=== PATIENT | male | born 1980 | race Two or more races ===

== ENCOUNTER 2017-03-31 20:22 | Inpatient (IN) | payer OTHER ==
[2017-03-31 20:31] VITALS: BMI 28.3
[2017-03-31] MEDS ORDERED: ONDANSETRON 4 MG/2 ML VIAL IVPB ONE (21:20)
[2017-03-31] MEDS ORDERED: SODIUM CHLORIDE 1,000 ML IV STA (21:20)
[2017-03-31] MEDS ORDERED: PANTOPRAZOLE SODIUM 40 MG in SODIUM CHLORIDE 100 ML IVPB ONE (21:20)
[2017-03-31] MEDS ORDERED: PANTOPRAZOLE SODIUM 100 ML IVPB ONE (21:37)
[2017-03-31] MEDS ORDERED: ONDANSETRON 4 MG/2 ML VIAL ONE (21:37)
[2017-03-31 22:08] LABS: URINE APPEARANCE CLEAR; URINE BILIRUBIN NEGATIVE (NEGATIVE); URINE BLOOD NEGATIVE (NEGATIVE); URINE COLOR LTYELLOW; URINE GLUCOSE (UA) NEGATIVE (NEGATIVE); URINE KETONE TRACE (NEGATIVE); URINE LEUK ESTERASE NEGATIVE (NEGATIVE); URINE NITRITE NEGATIVE (NEGATIVE); URINE PROTEIN NEGATIVE (NEGATIVE); URINE UROBILINOGEN NEGATIVE E.U./dl (0.2-1.0)
[2017-03-31 22:19] LABS: URINE MARIJUANA THC NEGATIVE ng/ml (CUTOFF=50)
[2017-03-31 22:54] LABS: AMYLASE 64 U/L (25-115); ANION GAP 9 (8-16); CALCIUM 9.2 mg/dL (8.5-10.1); CO2 30 mmol/L (21-32); COCKROFT - GAULT 107.09; CREATININE 0.9 mg/dL (0.7-1.3); GLUCOSE,RANDOM 92 mg/dL (74-106); SGOT/AST 30 U/L (15-37); SGPT/ALT 54 U/L (12-78); TOT PROT 7.3 g/dl (6.4-8.2)
[2017-03-31 22:55] LABS: ALK PHOS 105 U/L (45-117)
--- NOTE | 2017-04-01 00:53 | PDOC ---
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 Presents to ED c/o abd pain w / n/v starting 2am yesterday. Patient states having similar episode 3 months ago. He states he was using a medication for gastritis but does not remember the name. He also verbalized the use of TUMs for symptoms management. Patient denies any other complaints at this time. PCP- Mile Craft MD. Timing/Duration: reports: constant Quality: reports: moderate Abdominal Pain Onset Location: reports: generalized abdomen Pain Radiation: reports: no radiation Activities at Onset: reports: none Treatment Prior to Arrive: improves with: antacids. worse with: analgesics, cold pack, heat, laxative, enema, other Aggravating Factors: worse with: None, Defecation, Eating, Emotional upset, Exertion, [place], Movement, Voiding, Change in position Alleviating Factors: worse with: None, Belching, Shallow Breathing, Defecation, Eating, Holding Breath, Passing Gas, Change in Position, Rest, Voiding, Vomiting Past History - Travel Traveled outside of the country in the last 30 days: No Close contact w/someone who was outside of country & ill: No - Past Medical History Allergies/Adverse Reactions: Allergies Allergy/AdvReac Type Severity Reaction Status Date / Time pollen extracts Allergy Verified 03/31/17 21:10 Home Medications: Ambulatory Orders NK [No Known Home Medication] 03/31/17 HTN: Yes Hypercholesterolemia: Yes - Immunization History Immunization Up to Date: Yes - Psycho/Social/Smoking Cessation Hx Anxiety: No Suicidal Ideation: No Smoking History: Never smoked Have you smoked in the past 12 months: No Information on smoking cessation initiated: No Hx Alcohol Use: No Drug/Substance Use Hx: No Substance Use Type: Alcohol Abd/GI Specific PMHX - Complaint Specific PMHX Colitis: No Diverticulitis: No Gall Bladder Disease: No GERD: No Hepatitis: No Irritable Bowel Synd (IBS): No Pancreatitis: No GI Ulcer Disease: No Review of Systems - Review of Systems Able to Perform ROS?: Yes Is the patient limited Telugu proficient: No Constitutional: No: Chills, Fever HEENTM: No: Nose Congestion, Throat Pain, Throat Swelling, Mouth Pain, Difficulty Swallowing, Mouth Swelling Respiratory: No: Cough, Shortness of Breath, Stridor, Wheezing Cardiac (ROS): No: Chest Pain, Edema, Lightheadedness, Palpitations, Syncope, Chest Tightness ABD/GI: Yes: Nausea, Vomiting, Other (Generalized abd pain). No: Poor Appetite , Poor Fluid Intake, Rectal Bleeding Musculoskeletal: No: Back Pain Integumentary: No: Bruising, Dryness, Erythema, Rash, Sweating Neurological: No: Headache, Numbness, Seizure, Tingling, Tremors, Ataxia, Dizziness All Other Systems: Reviewed and Negative *Physical Exam - Vital Signs Last Vital Signs Temp Pulse Resp BP Pulse Ox 99.7 F H 79 18 117/69 98 03/31/17 20:28 03/31/17 20:28 03/31/17 20:28 03/31/17 20:28 03/31/17 21:00 - Physical Exam General Appearance: Yes: Nourished, Appropriately Dressed, Mild Distress. No: Apparent Distress, Moderate Distress, Severe Distress Neck: positive: Trachea midline, Supple. negative: Stridor, Lymphadenopathy (R) , Lymphadenopathy (L) Respiratory/Chest: positive: Lungs Clear, Normal Breath Sounds. negative: Respiratory Distress, Accessory Muscle Use, Labored Respiration, Rapid RR, Decreased Breath Sounds, Crackles, Rales, Stridor, Wheezing Cardiovascular: positive: Regular Rhythm, Regular Rate Gastrointestinal/Abdominal: positive: Soft, Decreased BS, Tenderness ( Generalized abd pain-mild tenderness to epigastric region on deep palpation.) Lymphatic: negative: Adenopathy Musculoskeletal: positive: Normal Inspection. negative: CVA Tenderness Extremity: positive: Normal Capillary Refill, Normal Inspection, Normal Range of Motion. 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 NML intact, Fully Oriented, Alert, Normal Mood/ Affect, Normal Response, Motor Strength /5 ED Treatment Course - LABORATORY CBC & Chemistry Diagram: 04/01/17 02:48 03/31/17 22:00 - ADDITIONAL ORDERS Additional order review: Laboratory Results 03/31/17 03/31/17 03/31/17 22:00 22:00 22:00 Sodium 139 Potassium 3.7 Chloride 100 Carbon Dioxide 30 Anion Gap 9 BUN 14 Creatinine 0.9 Creat Clearance w eGFR > 60 Random Glucose 92 Calcium 9.2 Total Bilirubin 1.0 AST 30 ALT 54 Alkaline Phosphatase 105 Total Protein 7.3 Albumin 4.0 Total Amylase 64 Lipase 104 Urine Color Ltyellow Urine Appearance Clear Urine pH 7.0 Ur Specific [place] 1.019 Urine Protein Negative Urine Glucose (UA) Negative Urine Ketones Trace H Urine Blood Negative Urine Nitrite Negative Urine Bilirubin Negative Urine Urobilinogen Negative Ur Leukocyte Esterase Negative Opiates Screen Negative Methadone Screen Negative Barbiturate Screen Negative Phencyclidine Screen Negative Ur Amphetamines Screen Negative MDMA (Ecstasy) Screen Negative Benzodiazepines Screen Negative Cocaine Screen Negative U Marijuana (THC) Screen Negative - Medications Given in the ED: ED Medications Discontinued Medications Generic Name Dose Route Start Last Admin Trade Name Freq PRN Reason Stop Dose Admin Pantoprazole Sodium 40 mg/ 100 mls @ 200 mls/hr 03/31/17 21:20 03/31/17 21:50 Sodium Chloride IVPB 03/31/17 21:49 200 mls/hr ONCE ONE Administration Sodium Chloride 1,000 mls @ 1,000 mls/hr 03/31/17 21:20 03/31/17 22:01 Normal Saline - IV 03/31/17 22:19 1,000 mls/hr ASDIR STA Administration Ondansetron HCl 4 mg 03/31/17 21:20 03/31/17 21:50 Zofran Injection IVPB 03/31/17 21:21 4 mg ONCE ONE Administration - Consult/PCP Time Called: 06:00 Case discussed with personal care physician: Roscoe Cazares Medical Decision Making - Medical Decision Making 04/01/17 06:[address] CAZARES REGARDING ACUTE APPENDICITIS. INSTRUCTIONS TO START ZOSYN AND KEEP PATIENT NPO DISCUSSED. HOSPITALIST TO ADMIT PATIENT. *DC/Admit/Observation/Transfer Diagnosis at time of Disposition: Acute appendicitis Qualifiers: Acute appendicitis type: unspecified acute appendicitis type Qualified Code(s) : K35.80 - Unspecified acute appendicitis - Discharge Dispostion Condition at time of disposition: Fair Admit: Yes
[2017-04-01 03:19] LABS: BASOPHIL 0.5 % (0-2.0); EOSINOPHIL 0.8 % (0-4.5); MCH 28.6 pg (25.7-33.7); MCHC 33.9 g/dl (32.0-35.9); MEAN CELL VOLUME 84.4 fl (80-96); NEUTROPHILS 74.7 % (42.8-82.8); PLATELET COUNT 197 K/MM3 (134-434); RDW 13.4 % (11.9-15.9); WHITE BLOOD COUNT 15.9 K/mm3 (4.0-10.0)
[2017-04-01] MEDS ORDERED: ERTAPENEM SODIUM 1 GM/50 ML PRE-DOCKED IVPB ONE (05:54)
[2017-04-01] MEDS ORDERED: ONDANSETRON 4 MG/2 ML VIAL IVPB ONE (05:55)
[2017-04-01] MEDS ORDERED: morphine CARPU-JECT 4 MG/1 ML DISP.SYRIN IVPUSH ONE (05:55)
[2017-04-01] MEDS ORDERED: PIPERACILLIN/TAZOB 3.375 GM/50 ML PRE-DOCKED IV ONE (06:00)
[2017-04-01] MEDS ORDERED: ERTAPENEM SODIUM 1 GM VIAL ONE (06:02)
[2017-04-01] MEDS ORDERED: morphine CARPU-JECT 4 MG/1 ML DISP.SYRIN ONE (06:02)
[2017-04-01] MEDS ORDERED: ONDANSETRON 4 MG/2 ML VIAL ONE (06:03)
[2017-04-01] MEDS ORDERED: morphine CARPU-JECT 2 MG/1 ML DISP.SYRIN IVPUSH PRN (06:48)
[2017-04-01] MEDS ORDERED: PIPERACILLIN/TAZOB 3.375 GM 50 ML IVPB ONE (06:49)
[2017-04-01] MEDS ORDERED: ONDANSETRON 4 MG/2 ML VIAL IVPB PRN (06:54)
[2017-04-01] MEDS ORDERED: LACTATED RINGERS SOLUTION 1,000 ML IV SCH (07:00)
[2017-04-01 07:41] LABS: INR 1.19 (0.82-1.09); PROTHROMBIN TIME (PATIENT) 13.1 SEC (9.98-11.88)
--- NOTE | 2017-04-01 08:34 | HP ---
Addendum entered and electronically signed by Paula Garcia RES 04/01/17 16 :26: surgery today; perforated appendix; will start IV Levaquin and flagyl Original Note: CHIEF COMPLAINT: abdominal pain, N/V PCP:Dr. Tim HISTORY OF PRESENT ILLNESS: 36 year old male with past medical history of ETOH use (quit drinking 6months ago), present to the emergency room with diffuse abdominal pain, nausea and vomiting since yesterday. Symptoms were accompanied with fever. Denies chest pain, sob, changes in bowel or bladder. Emergency course notable for elevated white count, CT abdominal CT evident for acute appendicitis. Recent Travel: no PAST MEDICAL HISTORY: none PAST SURGICAL HISTORY: none Social History: Smoking:no Alcohol:quit six months ago; used to drink beer on weekends Drugs:no Family History: Allergies pollen extracts Allergy (Verified 03/31/17 21:10) HOME MEDICATIONS: Home Medications Medication Instructions Recorded NK [No Known Home Medication] 03/31/17 REVIEW OF SYSTEMS CONSTITUTIONAL: Positive: fever Absent: chills, diaphoresis, generalized weakness, malaise, loss of appetite, weight change HEENT: Absent: rhinorrhea, nasal congestion, throat pain, throat swelling, difficulty swallowing, mouth swelling, ear pain, eye pain, visual changes CARDIOVASCULAR: Absent: chest pain, syncope, palpitations, irregular heart rate, lightheadedness , peripheral edema RESPIRATORY: Absent: cough, shortness of breath, dyspnea with exertion, orthopnea, wheezing, stridor, hemoptysis GASTROINTESTINAL: Postive: abdominal pain, nausea, vomiting Absent: abdominal distension,diarrhea, constipation, melena, hematochezia GENITOURINARY: Absent: dysuria, frequency, urgency, hesitancy, hematuria, flank pain, genital pain MUSCULOSKELETAL: Absent: myalgia, arthralgia, joint swelling, back pain, neck pain SKIN: Absent: rash, itching, pallor HEMATOLOGIC/IMMUNOLOGIC: Absent: easy bleeding, easy bruising, lymphadenopathy, frequent infections ENDOCRINE: Absent: unexplained weight gain, unexplained weight loss, heat intolerance, cold intolerance NEUROLOGIC: Absent: headache, focal weakness or paresthesias, dizziness, unsteady gait, seizure, mental status changes, bladder or bowel incontinence PSYCHIATRIC: Absent: anxiety, depression, suicidal or homicidal ideation, hallucinations. PHYSICAL EXAMINATION Vital Signs - 24 hr 04/01/17 04/01/17 04/01/17 06:21 07:52 08:09 Temperature 97.9 F 97.6 F 97.6 F Pulse Rate 47 L 47 L Pulse Rate [ 64 Left] Respiratory 17 18 18 Rate Blood Pressure 112/59 112/59 Blood Pressure 109/63 [Left Arm] O2 Sat by Pulse 96 98 Oximetry (%) GENERAL: Awake, alert, and fully oriented, in no acute distress. HEAD: Normal with no signs of trauma. EYES: Pupils equal, round and reactive to light, extraocular movements intact, sclera anicteric, conjunctiva clear. No lid lag. EARS, NOSE, THROAT: Ears normal, nares patent, oropharynx clear without exudates. Moist mucous membranes. NECK: Normal range of motion, supple without lymphadenopathy, JVD, or masses. LUNGS: Breath sounds equal, clear to auscultation bilaterally. No wheezes, and no crackles. No accessory muscle use. HEART: Regular rate and rhythm, normal S1 and S2 without murmur, rub or gallop. ABDOMEN: Soft, very tender, not distended, normoactive bowel sounds, no guarding , + rebound, no masses. No hepatomegaly or splenomegaly. MUSCULOSKELETAL: Normal range of motion at all joints. No bony deformities or tenderness. No CVA tenderness. UPPER EXTREMITIES: 2+ pulses, warm, well-perfused. No cyanosis. No clubbing. No peripheral edema. LOWER EXTREMITIES: 2+ pulses, warm, well-perfused. No calf tenderness. No peripheral edema. NEUROLOGICAL: Cranial nerves II-XII intact. Normal speech. Normal gait. PSYCHIATRIC: Cooperative. Good eye contact. Appropriate mood and affect. SKIN: Warm, dry, normal turgor, no rashes or lesions noted, normal capillary refill. Laboratory Results - last 24 hr 04/01/17 04/01/17 04/01/17 06:20 07:18 07:18 INR 1.19 H Blood Type O POSITIVE Cancelled Antibody Screen Negative Cancelled Spec Expiration Date Cancelled 04/01/17 07:43 INR Blood Type O POSITIVE Antibody Screen Spec Expiration Date ASSESSMENT/PLAN: 36 year old male with present with abdominal pain, n,v, fever; acute appendicitis on CT abdomen. #Acute appendicitis: -NPO for aurgery -pain control morphine -IVF -1x unasyn in ER -Surgery consulted Dr. Arad taking for surgery today FEN: Fluids: lactated ringer Electrolytes: wnl Diet: npo Disposition; pending surgery Visit type - Emergency Visit Emergency Visit: Yes ED Registration Date: 04/01/17 Care time: The patient presented to the Emergency Department on the above date and was hospitalized for further evaluation of their emergent condition. - New Patient This patient is new to me today: Yes Date on this admission: 04/01/17 - Critical Care Critical Care patient: No
--- NOTE | 2017-04-01 11:40 | MSN ---
Admitting History and Physical - Admission Chief Complaint: Abdominal pain History of Present Illness: MEDICAL STUDENT NOTE The patient is a 36 year old male with no significant past medical history who presented to the ED with a complaint of abdominal pain of one day duration. The patient stated that the pain began at approximately 1am this morning (5/3) along with fever, nausea and 3 episodes of vomiting (non-bloody). The pain was described as a pressure that started in the mid-epigastric region and radiated to the left side. It was rated 9/10. The pain was exacerbated with movement and nothing made the pain better. The patient stated that he had a similar episode of abdominal pain 3 months ago which resolved without medication or intervention. The patient was diagnosed with acute appendicitis in the ED. Today the patient has diffuse abdominal pain described as a pressure-like sensation and rated 8-9/10. He experiences occasional nausea and feels "hot and sweaty". He denies headaches, dizziness, diarrhea, constipation, shortness of breath, and chest pain. Tobacco: None Alcohol: Quit 6 months ago, stated he used to drink beer on the weekends Illicit drugs: none Caffeine: 1 cup of coffee/day Occupation: [employer] Social: Lives at home with , daughter, and son Medical Hx: None Home medications: None PSHx: None Allergies: None FHx: Mother had appendix removed History Source: Patient Limitations to Obtaining History: No Limitations - Smoking History Smoking history: Never smoked Have you smoked in the past 12 months: No - Alcohol/Substance Use Hx Alcohol Use: Yes Home Medications - Allergies Allergies/Adverse Reactions: Allergies Allergy/AdvReac Type Severity Reaction Status Date / Time pollen extracts Allergy Verified 03/31/17 21:10 - Home Medications Home Medications: Ambulatory Orders NK [No Known Home Medication] 03/31/17 Review of Systems - Review of Systems Constitutional: reports: Diaphoresis Eyes: denies: Recent Change in Vision HENT: denies: Difficult Swallowing, Throat Pain Cardiovascular: denies: Chest Pain, Edema, Palpitations, Shortness of Breath Respiratory: denies: Cough, Hemoptysis, Orthopnea, SOB, SOB on Exertion, Wheezing Gastrointestinal: reports: Abdominal Pain. denies: Constipation, Diarrhea Genitourinary: reports: Flank Pain (Left, radiates from abdomen) Musculoskeletal: reports: No Symptoms Integumentary: reports: No Symptoms Neurological: reports: No Symptoms Endocrine: reports: No Symptoms Hematology/Lymphatic: reports: No Symptoms Psychiatric: reports: No Symptoms Physical Examination Vital Signs: Vital Signs Temperature 97.6 F 04/01/17 08:09 Pulse Rate 47 L 04/01/17 08:09 Respiratory Rate 18 04/01/17 08:09 Blood Pressure 112/59 04/01/17 08:09 O2 Sat by Pulse Oximetry (%) 98 04/01/17 08:09 Constitutional: Yes: Well Nourished, Diaphoresis, Mild Distress Eyes: Yes: WNL, Conjunctiva Clear HENT: Yes: WNL, Atraumatic, Normocephalic Neck: Yes: WNL, Supple, Trachea Midline Cardiovascular: Yes: WNL, Regular Rate and Rhythm, S1, S2. No: Pulse Irregular , Murmur, Rub, S3, S4 Respiratory: Yes: WNL, Regular, CTA Bilaterally. No: Cough, Orthopnea, Rales, Rhonchi, SOB, SOB on Exertion, Stridor, Wheezes Gastrointestinal: Yes: Hyperactive Bowel Sounds, Tenderness (Diffuse, to light palpation). No: Tenderness, Rebound Extremities: Yes: WNL Edema: No (None B/L UE and LE) Peripheral Pulses WNL: Yes Peripheral Pulses: Left Radial: 2+, Right Radial: 2+, Left Doralis Pedis: 2+, Right Dorsalis Pedis: 2+ Integumentary: Yes: WNL Neurological: Yes: WNL, Alert, Oriented Psychiatric: Yes: WNL, Alert, Oriented Assessment/Plan MEDICAL STUDENT NOTE #Acute appendicitis - Dr. Cazares is following patient, anticipate appendectomy - NPO status - morphine 1mg IVP q4hr PRN for pain - zofran 4mg IVPB q4hr PRN - Lactate ringers solution 1000 mls @ 100/hr. #DVT prophylaxis - SCDs #Fluids - Lactate ringers 1000mls @ 100/hr #Electrolytes - None #Nutrition - NPO status until after surgery Disposition: Awaiting patient to have surgery, possibly can discharge to home today
--- NOTE | 2017-04-01 13:11 | EKG ---
Test Reason : Blood Pressure : / mmHG Vent. Rate : 058 BPM Atrial Rate : 058 BPM P-R Int : 160 ms QRS Dur : 096 ms QT Int : 436 ms P-R-T Axes : 041 057 029 degrees QTc Int : 428 ms SINUS BRADYCARDIA OTHERWISE NORMAL ECG NO PREVIOUS ECGS AVAILABLE Confirmed by ROLANDA TORRES, KENNA ([id number]) on 04/01/2017 1:10:48 PM Referred By: Confirmed By:KENNA ORANTES MD
[2017-04-01] MEDS ORDERED: MIDAZOLAM HCL 2 MG/2 ML SINGLE DOSE VIAL ONE (14:14)
[2017-04-01] MEDS ORDERED: ROCURONIUM BROMIDE 50 MG/5 ML VIAL ONE (14:14)
[2017-04-01] MEDS ORDERED: PROPOFOL 20 ML ONE (14:15)
--- NOTE | 2017-04-01 14:17 | CONSULT ---
Consult Consult Specialty:: Surgery Reason for Consultation:: Abdominal pain - History of Present Illness Chief Complaint: Abdominal pain History of Present Illness: 36 male with abdominal pain + Acute appendicitis on CT with elevated WBC Denies diarrhea, fevers - History Source History Provided By: Patient Limitations to Obtaining History: No Limitations - Alcohol/Substance Use Hx Alcohol Use: Yes - Smoking History Smoking history: Never smoked Have you smoked in the past 12 months: No Home Medications - Allergies Allergies/Adverse Reactions: Allergies Allergy/AdvReac Type Severity Reaction Status Date / Time pollen extracts Allergy Verified 03/31/17 21:10 - Home Medications Home Medications: Ambulatory Orders NK [No Known Home Medication] 03/31/17 Family Disease History - Family Disease History Family History: Denies Review of Systems - Review of Systems Constitutional: denies: Chills, Fever HENT: reports: No Symptoms Neck: reports: No Symptoms Cardiovascular: denies: Chest Pain Respiratory: denies: Cough Gastrointestinal: reports: Abdominal Pain. denies: Diarrhea, Melena, Nausea Genitourinary: reports: No Symptoms Neurological: denies: Change in LOC Pain Intensity: 5 Physical Exam Vital Signs: Vital Signs Temperature 97.9 F 04/01/17 14:00 Pulse Rate 51 L 04/01/17 14:00 Respiratory Rate 17 04/01/17 14:00 Blood Pressure 112/59 04/01/17 08:09 O2 Sat by Pulse Oximetry (%) 99 04/01/17 09:00 Constitutional: Yes: Calm HENT: Yes: WNL Neck: Yes: Supple Cardiovascular: Yes: Regular Rate and Rhythm Respiratory: Yes: CTA Bilaterally Gastrointestinal: Yes: Soft, Tenderness (RLQ), Tenderness, Rebound (Local guarding in RLQ). No: Distention Neurological: Yes: Alert, Oriented Labs: CBC, BMP 04/01/17 02:48 03/31/17 22:00 Imaging - Results Cat Scan: Report Reviewed, Image Reviewed Problem List - Problems (1) Acute appendicitis Code(s): K35.80 - UNSPECIFIED ACUTE APPENDICITIS Qualifiers: Acute appendicitis type: with localized peritonitis Qualified Code(s ): K35.3 - Acute appendicitis with localized peritonitis Assessment/Plan 36 male with acute appendicitis NPO IV fluids Antibiotics For laparoscopic possible open appendectomy Risks and benefits explained Understands and agrees
--- NOTE | 2017-04-01 14:22 | PN ---
Teaching Attending Note Name of Resident: Paula Garcia ATTENDING PHYSICIAN STATEMENT I saw and evaluated the patient. I reviewed the resident's note and discussed the case with the resident. I agree with the resident's findings and plan as documented. SUBJECTIVE:36yo M c/o sudden onset of epigastric pain that woke him up from sleep. pain is radiating throughout his abdomen. assoc with nausea and vomiting and vomited 2x yesterday (negative for blood). had similar episode over a year ago was seen in [facility] and told he had an infection and was placed on abx with resolution of his symptoms. states he was heavy drinker in the past but has not had a drink in 6 months. denies Cp, SOB,fever, chills, C/ D. denies illicit drug use or recent abx use. no surgical history OBJECTIVE: Last Vital Signs Temp Pulse Resp BP Pulse Ox 97.9 F 51 L 17 112/59 99 04/01/17 14:00 04/01/17 14:00 04/01/17 14:00 04/01/17 08:09 04/01/17 09:00 General NAD CV S1 S2 RRR no murmur/rub/gallop Lungs CTA B/L no wheezing/rales/rhonchi Abdomen soft +epigastric no rebound or guarding, negative Mcburney point. negative obtruator and psoas sign ASSESSMENT AND PLAN: 36yo M with PMH remote ETOH abuse presented to the ER and was admitted for further evaluation of their emergent condition 1. Acute appendicitis- medicine admission. NPO for appendectomy. surgery consulted. IVF, antiemetic and pain control switch abx to Levaquin/flagyl. will wait for operative report 2. DVT ppx- EAM
[2017-04-01] MEDS ORDERED: BUPIVACAINE HCL/PF 0.5% (5MG/ML) 10 ML VIAL ONE (14:38)
[2017-04-01] MEDS ORDERED: DEXAMETHASONE SOD PHOSPHATE 4 MG/1 ML VIAL ONE (15:09)
[2017-04-01] MEDS ORDERED: NEOSTIGMINE METHYLSULFATE 0.5 MG/ML - 10 ML MDV ONE (15:09)
[2017-04-01] MEDS ORDERED: GLYCOPYRROLATE 0.2 MG/1 ML VIAL ONE (15:09)
[2017-04-01] MEDS ORDERED: BUPIVACAINE HCL/PF (5 MG/ML) 30 ML VIAL IJ ONE ×2 (15:25→15:29)
[2017-04-01] MEDS ORDERED: KETOROLAC TROMETHAMINE 30 MG/1 ML VIAL ONE (15:31)
[2017-04-01] MEDS ORDERED: HYDROmorphone HCL CARPU-JECT 1 MG/1 ML DISP.SYRIN IVPUSH PRN (15:47)
--- NOTE | 2017-04-01 15:50 | OP ---
Operative Note - Note: Operative Date: 04/01/17 Pre-Operative Diagnosis: Acute appendicitis Operation: Laparoscopic appendectomy Findings: Perforated appendix Post-Operative Diagnosis: Other (Perforated appendicitis) Surgeon: Roscoe Cazares Content Engineer: Eddie Ram Anesthesia: General Specimens Removed: Appendix Estimated Blood Loss (mls): 10 Operative Report Dictated: Yes
[2017-04-01] MEDS ORDERED: HYDROmorphone HCL CARPU-JECT 1 MG/1 ML DISP.SYRIN IVPB PRN (15:52)
[2017-04-01] MEDS ORDERED: OXYCODONE/APAP 5/325MG COMBO TABLET PO PRN (15:52)
[2017-04-01] MEDS ORDERED: ACETAMINOPHEN 325 MG TABLET (FP) PO PRN (15:52)
[2017-04-01] MEDS ORDERED: D5-1/2NS+20 MEQ KCL - 1,000 ML IV SCH (16:00)
[2017-04-01] MEDS ORDERED: TRIMETHOBENZAMIDE HCL 200MG/2ML INJ IM PRN (16:00)
[2017-04-01] MEDS ORDERED: HYDROmorphone HCL CARPU-JECT 2 MG/1 ML DISP.SYRIN ONE (16:03)
[2017-04-01] MEDS: METRONIDAZOLE 500 MG PREMIXED 100 ML IVPB SCH (17:55)
[2017-04-02] MEDS: METRONIDAZOLE 500 MG PREMIXED 100 ML IVPB SCH ×3 (01:35→17:19)
[2017-04-02 07:29] LABS: BASOPHIL 0.3 % (0-2.0); EOSINOPHIL 0.7 % (0-4.5); MCH 29.5 pg (25.7-33.7); MCHC 35.1 g/dl (32.0-35.9); MEAN CELL VOLUME 84.1 fl (80-96); MEAN PLT VOLUME 9.7 fl (7.5-11.1); NEUTROPHILS 66.8 % (42.8-82.8); PLATELET COUNT 192 K/MM3 (134-434); RDW 13.7 % (11.9-15.9); WHITE BLOOD COUNT 9.4 K/mm3 (4.0-10.0)
[2017-04-02 07:52] LABS: CALCIUM 8.8 mg/dL (8.5-10.1); MAGNESIUM 2.4 mg/dL (1.8-2.4)
[2017-04-02 07:54] LABS: COCKROFT - GAULT 120.48; CREATININE 0.8 mg/dL (0.7-1.3)
[2017-04-02] MEDS: oxyCODONE HCL 5 MG TABLET PO PRN ×2 (08:09→22:05)
[2017-04-02] MEDS: ACETAMINOPHEN 325 MG TABLET (FP) PO PRN ×2 (08:11→22:05)
[2017-04-02] MEDS: LEVOFLOXACIN 500 MG IVPB 100 ML IVPB SCH (08:11)
--- NOTE | 2017-04-02 08:44 | PN ---
Progress Note (short form) - Note Progress Note: Surgery- Dr. Cazares Patient seen and examined. Patient doing well, reports some soreness, but pain is controlled. He is tolerating his diet, ambulating and urinating without issue. He denies nausea, vomiting, fever, chills. Last Vital Signs Temp Pulse Resp BP Pulse Ox 97.9 F 71 20 131/65 100 04/02/17 06:23 04/02/17 06:23 04/02/17 06:23 04/02/17 06:23 04/01/17 17:50 CBC, BMP 04/02/17 06:35 04/02/17 06:35 Exam: Gen: NAD, pleasant and cooperative Abd: soft, nondistended, minimal tenderness with palp, port sites with dressings c/d/i Problem List - Problems (1) Acute appendicitis Assessment/Plan: POD#1 s/p laparoscopic appendectomy with perforated appendix Pain controlled, afebrile, WBC wnl Continue regular diet DC IVF Pain control with oral pain medication Ambulate Continue IV abx 48 hrs postop Discuss[address] with Dr. Cazares and agrees Code(s): K35.80 - UNSPECIFIED ACUTE APPENDICITIS Qualifiers: Acute appendicitis type: with localized peritonitis Qualified Code(s ): K35.3 - Acute appendicitis with localized peritonitis
--- NOTE | 2017-04-02 08:57 | PN ---
Progress Note (short form) - Note Progress Note: Anesthesiology Post-op POD#1 s/p laparoscopic appendectomy under GA. Pt. awake, eating breakfast with no problem. Pain under control with meds, denies nausea. VSS. No apparent anesthesia-related issues.
--- NOTE | 2017-04-02 12:38 | MSN ---
Progress Note (SOAP) - Subjective Chief Complaint: Post-op Day 2 laparoscopic appendectomy History of Present Illness: MEDICAL STUDENT NOTE The patient is a 36 year old male with no significant past medical history who is post operative day 2 for laparoscopic appendectomy. He stated that his pain is well controlled on tylenol and oxycodone. He states that he was able to eat last night after the surgery and today. He denies fevers, chills, changes in bowel movements, dysuria, nausea, and headaches. - Current Medications Current Medications: Active Medications Acetaminophen (Tylenol -) 650 mg PO Q6H PRN PRN Reason: FEVER OR PAIN Acetaminophen (Tylenol -) 650 mg PO Q4H PRN PRN Reason: FEVER OR PAIN Last Admin: 04/02/17 08:11 Dose: 650 mg Hydromorphone HCl (Dilaudid Injection -) 1 mg IVPB Q4H PRN PRN Reason: PAIN Metronidazole (Flagyl 500mg Premixed Ivpb -) 100 mls @ 100 mls/hr IVPB Q8H-IV [facility] Last Admin: 04/02/17 09:47 Dose: 100 mls/hr Levofloxacin (Levaquin 500 Mg Premixed Ivpb -) 100 mls @ 100 mls/hr IVPB DAILY@ 0800 [facility] Last Admin: 04/02/17 08:11 Dose: 100 mls/hr Oxycodone HCl (Roxicodone -) 10 mg PO Q4H PRN Last Admin: 04/02/17 08:09 Dose: 10 mg Trimethobenzamide HCl (Tigan Injection -) 200 mg IM Q8H PRN PRN Reason: NAUSEA - Objective Vital Signs: Vital Signs Temperature 97.8 F 04/02/17 10:00 Pulse Rate 55 L 04/02/17 10:00 Respiratory Rate 18 04/02/17 10:00 Blood Pressure 110/55 04/02/17 10:00 O2 Sat by Pulse Oximetry (%) 100 04/02/17 09:00 Constitutional: Yes: Well Nourished, No Distress, Calm. No: Diaphoresis Eyes: Yes: WNL, Conjunctiva Clear HENT: Yes: WNL, Atraumatic, Normocephalic. No: Drooling, Hoarseness Neck: Yes: Supple, Trachea Midline Cardiovascular: Yes: WNL, Regular Rate and Rhythm, S1, S2. No: Pulse Irregular , JVD, S3, S4 Respiratory: Yes: WNL, Regular, CTA Bilaterally. No: Accessory Muscle Use, Cough, Rales, Rhonchi, SOB, Wheezes Gastrointestinal: Yes: WNL, Normal Bowel Sounds, Tenderness (Diffuse tenderness to light palpation.) Extremities: Yes: WNL, Shortened Peripheral Pulses: Left Radial: 2+, Right Radial: 2+, Left Doralis Pedis: 2+, Right Dorsalis Pedis: 2+ Edema: No (None B/L UE and LE) Wound/Incision: Yes: Clean/Dry, Dressing Dry and Intact. No: Draining, Reddened , Bleeding Neurological: Yes: WNL, Alert Psychiatric: Yes: WNL, Alert, Oriented Labs Lab Results: CBC, BMP 04/02/17 06:35 04/02/17 06:35 Assessment/Plan MEDICAL STUDENT NOTE #Post operative Day 2 s/p laparoscopic appendectomy for perforated appendix - Leukocytosis resolved, afebrile - Pain well controlled on tylenol and hydrocodone - Day 2 of Levofloxacin and metronidazole. Will continue to give IV abx until 48 hours after surgery then change to PO for discharge #DVT prophylaxis - SCDs - Ambulation as tolerated #Fluids - PO fluids #Electrolytes - WNL #Nutrition - No dietary restriction Disposition: Will change abx to PO tomorrow then can be discharged.
--- NOTE | 2017-04-02 14:29 | PN ---
Teaching Attending Note Name of Resident: Paula Garcia ATTENDING PHYSICIAN STATEMENT I saw and evaluated the patient. I reviewed the resident's note and discussed the case with the resident. I agree with the resident's findings and plan as documented. SUBJECTIVE:states pain has improved. controlled with pain medication. passed flatus no BM. denies CP, SOB<fever,chills OBJECTIVE: Last Vital Signs Temp Pulse Resp BP Pulse Ox 97.8 F 55 L 18 110/55 100 04/02/17 10:04/02/17 10:04/02/17 10:04/02/17 10:04/02/17 09:00 General NAD CV S1 S2 RRR no murmur/rub/gallop Lungs CTA B/L no wheezing/rales/rhonchi Abdomen soft mild tender surrounding surgical incisions sites. mild distention ASSESSMENT AND PLAN: 36yo M with PMH remote ETOH abuse presented to the ER and was admitted for further evaluation of their emergent condition 1. Acute appendicitis- s/p laproscopic appendectomy. had perforated appendicitis. on Levaquin/Flagyl day2. will cont IV abx tomorrow and d/c on oral. encourage OOB, ambulate as tolerated. d/c IVF. cont pain control. 2. DVT ppx- EAM 3. d/c planning tomorrow
--- NOTE | 2017-04-02 14:53 | PN ---
Physical Exam: SUBJECTIVE: Patient seen and examined, POD 2 appendectomy; still with mild abdominal pain. No BM, +flatus. Tolerating regular diet. OBJECTIVE: Vital Signs Period Temp Pulse Resp BP Sys/Zavaleta Pulse Ox Last 24 Hr 97.8 F-98.3 F 46-71 10-20 104-131/49-75 99-100 GENERAL: The patient is awake, alert, and fully oriented, in no acute distress. HEAD: Normal with no signs of trauma. EYES: PERRL, extraocular movements intact, sclera anicteric, conjunctiva clear. No ptosis. ENT: Ears normal, nares patent, oropharynx clear without exudates, moist mucous membranes. NECK: Trachea midline, full range of motion, supple. LUNGS: Breath sounds equal, clear to auscultation bilaterally, no wheezes, no crackles, no accessory muscle use. HEART: Regular rate and rhythm, S1, S2 without murmur, rub or gallop. ABDOMEN: Soft, tender at insicion site (lap), nondistended, normoactive bowel sounds, no guarding, no rebound, no hepatosplenomegaly, no masses. wounds clean, dry intact, so erythema , edema EXTREMITIES: 2+ pulses, warm, well-perfused, no edema. NEUROLOGICAL: Cranial nerves II through XII grossly intact. Normal speech, gait not observed. PSYCH: Normal mood, normal affect. SKIN: Warm, dry, normal turgor, no rashes or lesions noted Laboratory Results - last 24 hr 04/02/17 04/02/17 06:35 06:35 WBC 9.4 D RBC 4.95 Hgb 14.6 Hct 41.7 MCV 84.1 MCHC 35.1 RDW 13.7 Plt Count 192 MPV 9.7 Neutrophils % 66.8 Lymphocytes % 24.8 D Monocytes % 7.4 Eosinophils % 0.7 Basophils % 0.3 Sodium 139 Potassium 4.3 Chloride 102 Carbon Dioxide 26 Anion Gap 11 BUN 11 D Creatinine 0.8 Random Glucose 107 H Calcium 8.8 Magnesium 2.4 Active Medications Generic Name Dose Route Start Last Admin Trade Name Freq PRN Reason Stop Dose Admin Acetaminophen 650 mg 04/01/17 15:52 Tylenol - PO Q6H PRN FEVER OR PAIN Acetaminophen 650 mg 04/01/17 16:08 04/02/17 08:11 Tylenol - PO 650 mg Q4H PRN Administration FEVER OR PAIN Hydromorphone HCl 1 mg 04/01/17 15:52 Dilaudid Injection - IVPB Q4H PRN PAIN Metronidazole 100 mls @ 100 mls/hr 04/01/17 18:00 04/02/17 09:47 Flagyl 500mg Premixed Ivpb - IVPB 100 mls/hr Q8H-IV HARRIET Administration Levofloxacin 100 mls @ 100 mls/hr 04/02/17 08:00 04/02/17 08:11 Levaquin 500 Mg Premixed Ivpb - IVPB 100 mls/hr DAILY@0800 [facility] Administration Oxycodone HCl 10 mg 04/01/17 16:08 04/02/17 08:09 Roxicodone - PO 10 mg Q4H PRN Administration Trimethobenzamide HCl 200 mg 04/01/17 16:00 Tigan Injection - IM Q8H PRN NAUSEA ASSESSMENT/PLAN: 36 year old male with present with abdominal pain, n,v, fever; acute appendicitis on CT abdomen. #Acute appendicitis:POD2 perforated appendectomy -Day2 IV antibiotics; Levaquin/flagyl -tolerating regular diet;passing fermin; no BM yet -pain control morphine FEN: Fluids:po Electrolytes: wnl Diet:regular VTE prophylaxis: ambulate Disposition: d/c tomorrow; send home on po antibiotics Visit type - Emergency Visit Emergency Visit: Yes ED Registration Date: 04/01/17 Care time: The patient presented to the Emergency Department on the above date and was hospitalized for further evaluation of their emergent condition. - New Patient This patient is new to me today: No - Critical Care Critical Care patient: No
[2017-04-03] MEDS: METRONIDAZOLE 500 MG PREMIXED 100 ML IVPB SCH ×2 (02:19→10:32)
--- NOTE | 2017-04-03 06:55 | SURG ---
Surgery Appliance Mechanic Note Appliance Mechanic: Eddie Ram PA-C Date of Service: 04/01/17 Diagnosis: Acute appendicitis with abscess formation identified on CT Scan Procedure: Laparoscopic appendectomy (perforated) I was present for the entirety of the operative procedure. For further detail, please refer to operative report. Visit type - Case Type Case Type: ED Admission - Emergency Emergency Visit: Yes ED Registration Date: 04/01/17 Care time: The patient presented to the Emergency Department on the above date and was hospitalized for further evaluation of their emergent condition. - New patient This patient is new to me today: Yes Date on this admission: 04/03/17
[2017-04-03] MEDS: LEVOFLOXACIN 500 MG IVPB 100 ML IVPB SCH (07:51)
--- NOTE | 2017-04-03 08:36 | PN ---
Progress Note (short form) - Note Progress Note: POD #2 Alert. Resting in position of comfort. C/o incisional tenderness. Pain controlled well via PRN meds. Tolerating PO diet. Passing flatus. Voiding spontaneously. Using his incentive spriometer. Ambulating hallways unassisted. AVSS. Afebrile. WBC 9.4 (15.9) PE Gen: alert. Nad. Abd: Soft. All surgical ports intact. No hematoma Problem List - Problems (1) Acute appendicitis Assessment/Plan: POD #2 s/p Lap appendectomy (intra-op findings identified perforated appendix with abscess formation) Cont diet as tolerated. Finish his IV abx Can be discharged home this afternoon Patient will continue with Cipro and Flagyl as out-patient (scripts already escribed) No further surgical intervention. On behalf of Dr. Cazares, thank you for the opportunity to participate in your patient's care. Code(s): K35.80 - UNSPECIFIED ACUTE APPENDICITIS Qualifiers: Acute appendicitis type: with localized peritonitis Qualified Code(s ): K35.3 - Acute appendicitis with localized peritonitis
[2017-04-03 09:05] LABS: BASOPHIL 0.7 % (0-2.0); EOSINOPHIL 2.7 % (0-4.5); MCH 29.1 pg (25.7-33.7); MCHC 34.1 g/dl (32.0-35.9); MEAN CELL VOLUME 85.3 fl (80-96); MEAN PLT VOLUME 9.9 fl (7.5-11.1); NEUTROPHILS 39.6 % (42.8-82.8); PLATELET COUNT 197 K/MM3 (134-434); RDW 13.6 % (11.9-15.9); WHITE BLOOD COUNT 6.6 K/mm3 (4.0-10.0)
[2017-04-03 09:15] VITALS: BP 122/74; PULSE 54; TEMP 97.9
[2017-04-03 09:48] LABS: CALCIUM 8.9 mg/dL (8.5-10.1); COCKROFT - GAULT 107.09; CREATININE 0.9 mg/dL (0.7-1.3)
--- NOTE | 2017-04-03 10:22 | DS ---
Physical Exam: SUBJECTIVE: Patient seen and examined by me at bedside. Patient had a bowel movement this morning and reports pain is controlled with pain medication. Patient denies any fever, chills, nausea, vomiting, chest pain, palpitations, shortness of breath, headaches, dysuria, hematuria. OBJECTIVE: Vital Signs Period Temp Pulse Resp BP Sys/Zavaleta Pulse Ox Last 24 Hr 97.9 F-98.3 F 50-60 16-18 102-122/58-74 100 PHYSICAL EXAM GENERAL: The patient is awake, alert, and fully oriented, in no acute distress. LUNGS: Breath sounds equal, clear to auscultation bilaterally, no wheezes, no crackles, no accessory muscle use. HEART: Regular rate and rhythm, S1, S2 without murmur, rub or gallop. ABDOMEN: Mild tenderness upon palpation near surgical incision sites EXTREMITIES: No Peripheral edema. LABS Laboratory Results - last 24 hr 04/03/17 04/03/17 07:34 07:34 WBC 6.6 RBC 5.20 Hgb 15.1 Hct 44.3 MCV 85.3 MCHC 34.1 RDW 13.6 Plt Count 197 MPV 9.9 Neutrophils % 39.6 L D Lymphocytes % 50.1 H D Monocytes % 6.9 Eosinophils % 2.7 D Basophils % 0.7 Sodium 138 Potassium 4.1 Chloride 100 Carbon Dioxide 28 Anion Gap 10 BUN 14 D Creatinine 0.9 Random Glucose 118 H Calcium 8.9 HOSPITAL COURSE: Date of Admission:04/01/17 Date of Discharge: 04/03/17 Patient is a 36 year old male with a PMHx of ETOH abuse who presented to the ED with diffuse abdominal pain, nausea, vomiting, and fever. CT abdomen revealed Acute Appendicitis. Laproscopic appendectomy performed and patients appendix was found to be perforated. Patient was placed on IV fluids, Pain medication and on Levaquin and Flagyl. Today is s/p Laproscopic appendectomy day #2 and was tolerating PO diet as well as adequate pain control with pain medications. Patient had bowel movement and + Flatus. As per surgery, patient was cleared for discharge and is to follow up with surgery within two weeks, PCP within 1 week and continue PO antibiotics with Levaquin and Flagyl. Minutes to complete discharge: 35 Discharge Summary Reason For Visit: ACUTE APPENDICITIS Current Active Problems Acute appendicitis (Acute) Condition: Stable - Instructions Diet, Activity, Other Instructions: Dr Cazares's Discharge Instructions Dear Yanick, Post Operative Instructions Physical activity Resume your normal everyday activity as tolerated no heavy lifting or exercise until seen by your surgeon. You may walk unlimited el of and climb stairs. You may resume driving the car when you feel safe and comfortable behind the wheel. Wound care If you have a bandage, leave it on, and keep dry for 48-72 hours. After that time discard the outer bandage. If there are tapes on the skin under the outer bandage, leave them in place. They will peel off in the next 7 to 10 days. Do Not Peel them off. You may shower the day after surgery. If there are tapes present on the skin, you may shower over them. Diet There are no dietary restrictions. Eat healthy, high-fiber foods. Drink 6 to 8 glasses of liquid each day. This will assist in keeping your bowels are regular. Pain management You may take Tylenol or acetaminophen or Ibuprofen (for example, Motrin, Advil etc.) Any pain prescription medication ordered should be taken as prescribed for moderate to severe pain. Call Dr. Cazares for any of the following: Severe pain not relieved by medication Fever of 101 or higher Excessive bleeding or drainage on dressing Inability to urinate Call the office for an appointment in seven days. Dr. 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 You will take Flaygyl one pill three times a day for 8 days. You will also take Levaquin once a day for 8 days. -Follow up with your Primary doctor next week. -Follow up with Dr. Cazares is 7 days for a follow up appointment. Referrals: Roscoe Cazares MD [Staff Physician] - Disposition: HOME - Home Medications Comprehensive Discharge Medication List: Ambulatory Orders Docusate Sodium [Colace -] 100 mg PO TID #90 capsule 04/01/17 Levofloxacin [Levaquin -] 500 mg PO DAILY #8 tablet 04/01/17 Metronidazole [Flagyl -] 500 mg PO TID #24 tablet 04/01/17 Oxycodone HCl/Acetaminophen [Percocet 5-325 mg Tablet] 1 - 2 tab PO Q6H #28 tab MDD 4 04/01/17 This patient is new to me today: Yes Date on this admission: 04/03/17 Emergency Visit: Yes ED Registration Date: 04/01/17 Care time: The patient presented to the Emergency Department on the above date and was hospitalized for further evaluation of their emergent condition. Critical Care patient: No - Discharge Referral Referred to [facility] Med P.C.: Yes Physician Referral: Alberto Wynne MD ([facility])
--- NOTE | 2017-04-03 15:27 | PN ---
Teaching Attending Note Name of Resident: Prerna Reyes ATTENDING PHYSICIAN STATEMENT I saw and evaluated the patient. I reviewed the resident's note and discussed the case with the resident. I agree with the resident's findings and plan as documented. SUBJECTIVE:currently asymptomatic. pain controlled with pain medications. had BM this AM. normal in color and consistency denies CP and SOB OBJECTIVE: Last Vital Signs Temp Pulse Resp BP Pulse Ox 97.9 F 54 L 16 122/74 100 04/03/17 09:14 04/03/17 09:14 04/03/17 09:14 04/03/17 09:14 04/03/17 09:00 General NAD Abdomen soft mild tender surrounding surgical incisions sites. ASSESSMENT AND PLAN: 36yo M with PMH remote ETOH abuse presented to the ER and was admitted for further evaluation of their emergent condition 1. Acute appendicitis- s/p laproscopic appendectomy with perforated appendicitis. on Levaquin/Flagyl day3. will discharge to complete additional week of abx per surgery. will f/u with PMH next week and surgeon in 2 weeks. 2. DVT ppx- EAM 3. d/c home
--- NOTE | 2017-04-03 17:07 | PATH ---
Surgical Pathology Report Patient Name: DAMIEN DE LUNA [facility] [place]. Rec. #: [id number] /Age/Gender: 1980 (Age: 36) / M Account: [id number] Location: [address] [place] [address] Taken: 04/01/2017 Received: 04/02/2017 Reported: 04/03/2017 Physicians: Roscoe Cazares M.D. Specimen(s) Received APPENDIX Clinical History Acute appendicitis Final Diagnosis APPENDIX, APPENDECTOMY: ACUTE APPENDICITIS AND PERIAPPENDICITIS. Electronically Signed Aamir Hickey M.D. Gross Description Received in formalin, labeled "appendix," is a 5.7 cm. in length vermiform appendix with a stapled margin of resection and moderate attached fat. The serosa is clark sosa with focal attached exudate. Sectioning reveals a hemorrhagic lumen. The wall of the appendix averages 0.1 cm. in thickness. Wood Boat Builder Supervisor sections are submitted in one cassette. /04/02/201704/02/2017
--- NOTE | 2017-04-10 15:55 | SPEC ---
DATE OF OPERATION: 04/01/2017 PREOPERATIVE DIAGNOSIS: Acute appendicitis. POSTOPERATIVE DIAGNOSIS: Perforated acute appendicitis. SPECIMEN: Appendix. OPERATION: Laparoscopic appendectomy. FINDINGS: Perforated appendix. SURGEON: Roscoe Cazares MD RANCH HELPER: ROME Gonzales ANESTHESIA: General. ESTIMATED BLOOD LOSS: 10 mL. REASON FOR PROCEDURE: This is a 36-year-old gentleman who presented to the emergency room with abdominal pain. He was found to have evidence of acute appendicitis on both lab, physical findings, and imaging. Because of this, he was consented for a laparoscopic, possible open appendectomy. RISKS AND BENEFITS: The risks and benefits were explained for a laparoscopic, possible open appendectomy. These included bleeding, infection, hernia, WI, DVT , PE, injury to surrounding structures including the liver, colon, bowel, bladder, ureter, vessel injury, nerve injury, abscess formation, staple line leak, staple line dehiscence as some of the possible complications. The patient understood and signed informed consent. DESCRIPTION OF PROCEDURE: The patient was placed supine on the operating room table. The patient underwent general endotracheal intubation. A López catheter was inserted by the nursing staff. The abdomen was prepped and draped in the usual sterile fashion. A timeout was performed. A periumbilical incision was made and a 5-mm optical trocar was inserted under direct visualization with the laparoscope. Pneumoperitoneum was then established. Subsequently, a 5-mm trocar was placed in the suprapubic area and a 12-mm trocar placed in the left lower quadrant. The patient was placed in Trendelenburg right side up position. After meticulous dissection, the appendix was identified. The appendix was noted to be perforated. The area was irrigated and suctioned until clean. The appendix was freed from its surrounding structures and the appendix was retracted to the anterior abdominal wall. The base of the appendix was identified. A window was created within the mesentery near the base of the appendix. The appendix at its base was stapled using a laparoscopic Endo-JUDI stapler with a white load. The mesoappendix was then transected using a laparoscopic Endo-JUDI stapler with a white load. The appendix was placed in an EndoCatch bag. Inspection of both staple lines was identified. The staple line at the base of the appendix was noted to be fully intact. Hemostasis was noted at the staple line of the mesoappendix. Copious irrigation and suction was performed. The appendix was removed from the abdominal cavity and sent off the operative field as specimen. The patient was then placed in left side up position. The 12-mm trocar was removed. The fascia at this site was closed using a 0 Vicryl suture with a Marco- Mirna device. The patient was then placed supine. Pneumoperitoneum was desufflated and all further trocars were removed. All incision sites were irrigated and Marcaine was injected at all incision sites. The fascial suture was secured. All incision sites were closed using 4-0 Biosyn. Sterile dressings were applied. The patient tolerated the procedure well. The López catheter was removed and the patient was transferred to the recovery room in stable condition. Because of the perforation, he was continued on IV antibiotics in the hospital. Mely [id number] MTDD
== END 2017-04-03 11:32 | disposition home or self-care (01) | DRG 225 ==
LOC: JER 20:22 → JERBED 04-01 06:18 → UNDOADMIN 04-01 06:30 → JERBED 04-01 06:30 → J6S 04-01 08:10
PROVIDERS: ADMIT Internal Medicine; ATTEND Internal Medicine
PROC: 0DTJ4ZZ Resection of Appendix, Percutaneous Endoscopic Approach (ICD-10-PCS; principal; 2017-04-01 13:00)
DX: K35.3 Acute appendicitis with localized peritonitis (principal); D72.829 Elevated white blood cell count, unspecified
CPT/HCPCS: 36415; 71020-TC; 74177-TC; 80048; 80053; 80307; 81003; 82150; 83690; 83735; 85025; 85610; 86850; 86900; 86901; 88304-TC; 93005; 93010; 94760; 99283-25; J3490

== ENCOUNTER 2023-04-30 11:02 | Emergency (ER) | payer OTHER ==
[2023-04-30 11:09] VITALS: BP 149/81; PULSE 54; RESP 18; TEMP 98.2; BMI 30.2
[2023-04-30] MEDS ORDERED: DIPHTH,PERTUSS(ACELL),TET 0.5 ML DISP.SYRIN IM ONE ×2 (11:30→11:44)
== END 2023-04-30 12:19 | disposition short-term general hospital (02) ==
LOC: JERFT 11:02
PROC: 3E0234Z Introduction of Serum, Toxoid and Vaccine into Muscle, Percutaneous Approach (ICD-10-PCS; principal; 2023-04-30)
DX: S61.311A Laceration without foreign body of left index finger with damage to nail, initial encounter (principal); S62.631B Displaced fracture of distal phalanx of left index finger, initial encounter for open fracture; W31.1XXA Contact with metalworking machines, initial encounter
CPT/HCPCS: 73140-TC-LT-FY; 90471; 90715; 99285-25